=== PATIENT | female | born 1995 | race African-American/Black ===

== ENCOUNTER 2018-04-17 14:25 | Emergency (ER) | payer BC ==
[~2018-04-17] VITALS: Ht 154.9 cm; Wt 46.7 kg
[2018-04-17] MEDS ORDERED: ONDANSETRON IV *ER 4 MG/2 ML VIAL IV ONE (15:00)
[2018-04-17] MEDS ORDERED: IV NORMAL SALINE 1000 ML BAG IV ONE (15:00)
[2018-04-17] MEDS ORDERED: MECLIZINE HCL 25 MG TABLET PO ONE (15:00)
[2018-04-17] MEDS ORDERED: DIAZEPAM 10 MG/2 ML DISP.SYRIN IV ONE (15:00)
--- NOTE | 2018-04-17 15:00 | NUR ---
IV Valium- "Not available" per pharmacy staff [place]. BERKOWITZ notified.
[2018-04-17] MEDS ORDERED: MECLIZINE HCL 25 MG TABLET ONE (15:05)
[2018-04-17] MEDS ORDERED: ONDANSETRON 4 MG/2 ML VIAL ONE (15:05)
[2018-04-17 15:13] LABS: BASOPHILS % (AUTO) 0.4 % (0.0-2.0); EOSINOPHILS # (AUTO) 0.1 K/uL (0.0-0.7); EOSINOPHILS % (AUTO) 1.2 % (0.0-7.0); HEMATOCRIT 44.5 % (31.2-41.9); HEMOGLOBIN 15.2 g/dL (10.9-14.3); LYMPHOCYTES # (AUTO) 1.7 K/uL (20.0-40.0); LYMPHOCYTES % (AUTO) 26.4 % (20.5-51.5); MEAN CORPUSCULAR HEMOGLOBIN 28.7 uug (24.7-32.8); MEAN CORPUSCULAR HGB CONC 34 g/dL (32.3-35.6); MEAN CORPUSCULAR VOLUME 84.1 fL (75.5-95.3); MONOCYTES # (AUTO) 0.2 K/uL (2.0-10.0); NEUTROPHILS # (AUTO) 4.2 K/uL (1.8-8.9); PLATELET COUNT (AUTO) 144 K/uL (179-408); RED BLOOD CELL COUNT(AUTO) 5.29 MIL/uL (3.63-4.92); WHITE BLOOD COUNT (AUTO) 6.3 K/uL (3.8-11.8)
[2018-04-17] MEDS ORDERED: DIAZEPAM 2 MG TABLET PO ONE (15:15)
[2018-04-17] MEDS ORDERED: DIAZEPAM 5 MG TABLET ONE (15:17)
[2018-04-17 15:25] LABS: BILIRUBIN,DIRECT 0.1 mg/dL (0.0-0.2); BILIRUBIN,TOTAL 0.6 mg/dL (0.2-1.0); CREATININE 0.7 mg/dL (0.6-1.3); POTASSIUM 3.8 mmol/L (3.5-5.1); TOTAL PROTEIN, SERUM 8.5 g/dL (6.4-8.2)
--- NOTE | 2018-04-17 15:58 | NUR ---
Patient is resting comfortably in bed with eyes closed. Comfort measrues maintained. Addendum: 04/17/18 at 1559 by WOODY Comfort measures maintained.
--- NOTE | 2018-04-17 16:15 | NUR ---
Patient discharged to home in stable conditon & steady gait. Written and verbal after care instructions given to patient and [id number]. Patient and family verbalized understanding of instructions. Patient denies dizziness & headaches at this time.
== END 2018-04-17 16:22 | disposition home or self-care (01) ==
LOC: ER 14:29
DX: R42 Dizziness and giddiness (principal)
CPT/HCPCS: 36415; 84703; 85025; A4663; J2405; J8597